=== PATIENT | female | born 1970 | race Caucasian/White ===

== ENCOUNTER 2020-07-21 10:35 | Inpatient (IN) ==
[2020-07-21] MEDS ORDERED: Magnesium Oxide 400 MG TABLET PO ONE (12:12)
[2020-07-21] MEDS ORDERED: *HR* LORazepam 2 MG/ML VIAL IM ONE ×3 (13:28→19:15)
[2020-07-21] MEDS ORDERED: Haloperidol Lactate 5 MG/ML VIAL IM ONE (13:28)
[2020-07-21] MEDS ORDERED: carvediloL 25 MG TABLET PO ONE (15:29)
[2020-07-21 20:15] LABS: Acetaminophen < 10 mcg/mL (10-20); Alanine Aminotransferase 18 Units/L (7-52); Albumin 4.3 g/dL (3.5-5.7); Albumin/Globulin Ratio 1.2 (1.1-2.2); Alkaline Phosphatase 71 Units/L (34-104); Aspartate Amino Transferase 19 Units/L (13-39); Bilirubin,Direct 0.1 mg/dL (0.0-0.2); Bilirubin,Indirect 0.6 mg/dL (0.0-1.0); Bilirubin,Total 0.7 mg/dL (0.3-1.0); Globulin 3.5 g/dL (2.4-3.5); Salicylate < 2.5 mg/dL (15.0-30.0); Total Protein 7.8 g/dL (6.4-8.9)
[2020-07-21] MEDS ORDERED: MOM Conc 10 ML UD.LIQ PO PRN (21:06)
[2020-07-21] MEDS ORDERED: Mag Hydrox/Al Hydrox/Simeth 30 ML UDC PO PRN (21:06)
[2020-07-21] MEDS ORDERED: haloperidoL 5 MG TABLET PO PRN (21:06)
[2020-07-21] MEDS ORDERED: *HR* LORazepam 2 MG/ML VIAL IM PRN (21:06)
[2020-07-21] MEDS ORDERED: *HR* LORazepam 1 MG TABLET PO PRN (21:06)
[2020-07-21] MEDS ORDERED: Ibuprofen 400 MG TABLET PO PRN (21:06)
[2020-07-21] MEDS ORDERED: Nicotine 2 MG GUM BC PRN (21:06)
[2020-07-21 21:41] LABS: Adenovirus Not Detected (Not Detect); Bordetella Pertussis Not Detected (Not Detect); Chlamydophila pneumoniae Not Detected (Not Detect); Coronavirus 229E Not Detected (Not Detect); Coronavirus HKU1 Not Detected (Not Detect); Coronavirus NL63 Not Detected (Not Detect); Coronavirus OC43 Not Detected (Not Detect); Human Metapneumovirus Not Detected (Not Detect); Human Rhinovirus/Enterovirus Not Detected (Not Detect); Influenza A Subtype 2009 H1 Not Detected (Not Detect); Influenza B Not Detected (Not Detect); Mycoplasma pneumoniae Not Detected (Not Detect); Parainfluenza Virus 1 Not Detected (Not Detect); Parainfluenza Virus 2 Not Detected (Not Detect); Parainfluenza Virus 3 Not Detected (Not Detect); Parainfluenza Virus 4 Not Detected (Not Detect); Respiratory Syncytial Virus Not Detected (Not Detect); SARS-CoV-2 Not Detected (Not Detect)
[2020-07-21] MEDS ORDERED: cloNIDine HCL 0.1 MG TABLET PO ONE (22:22)
[2020-07-21] MEDS: Acetaminophen 325 MG TABLET PO PRN (22:42)
[2020-07-21] MEDS: traZODone 50 MG TABLET PO PRN (22:43)
[2020-07-21] MEDS: hydrOXYzine pamoate 25 MG CAPSULE PO PRN (22:43)
[2020-07-22] MEDS: *HR* LORazepam 2 MG/ML VIAL IM PRN ×2 (03:46→21:22)
[2020-07-22] MEDS: Haloperidol Lactate 5 MG/ML VIAL IM PRN ×2 (03:46→21:21)
[2020-07-22] MEDS: Nicotine 14 MG PATCH.TD24 TD SCH (08:52)
[2020-07-22] MEDS ORDERED: *HR* LORazepam 1 MG TABLET PO ONE (11:53)
[2020-07-22] MEDS ORDERED: carvediloL 25 MG TABLET PO ONE (12:00)
[2020-07-22] MEDS: Acetaminophen 325 MG TABLET PO PRN (12:54)
[2020-07-22] MEDS: Aspirin Enteric Coated 81 MG Tablet PO SCH (12:54)
[2020-07-22] MEDS: Pregabalin 50 MG CAPSULE PO SCH ×2 (13:12→20:35)
[2020-07-22] MEDS: Vitamin B Complex/Vit C/Vit E 1 EACH TABLET PO SCH (13:15)
[2020-07-22] MEDS: *HR* LORazepam 1 MG TABLET PO SCH ×2 (14:39→20:35)
[2020-07-22] MEDS: carvediloL 25 MG TABLET PO SCH (18:11)
[2020-07-22] MEDS: Divalproex (24 HR) 500 MG TABLET PO SCH ×2 (20:37→21:51)
[2020-07-22] MEDS ORDERED: QUEtiapine Fumarate 100 MG TABLET PO SCH (21:00)
[2020-07-23] MEDS: hydrOXYzine pamoate 25 MG CAPSULE PO PRN (03:43)
[2020-07-23] MEDS: Aspirin Enteric Coated 81 MG Tablet PO SCH (08:38)
[2020-07-23] MEDS: Vitamin B Complex/Vit C/Vit E 1 EACH TABLET PO SCH ×2 (08:38→08:44)
[2020-07-23] MEDS: *HR* LORazepam 1 MG TABLET PO SCH ×3 (08:38→20:49)
[2020-07-23] MEDS: Pregabalin 50 MG CAPSULE PO SCH ×3 (08:38→20:49)
[2020-07-23] MEDS: carvediloL 25 MG TABLET PO SCH ×2 (08:39→18:09)
[2020-07-23] MEDS: Nicotine 14 MG PATCH.TD24 TD SCH (08:44)
[2020-07-23] MEDS: *HR* LORazepam 2 MG/ML VIAL IM PRN (13:51)
[2020-07-23] MEDS: Haloperidol Lactate 5 MG/ML VIAL IM PRN (13:51)
[2020-07-23] MEDS: estradioL 0.5 MG TABLET PO SCH (14:03)
[2020-07-23] MEDS: traZODone 50 MG TABLET PO SCH ×2 (20:48→20:49)
[2020-07-23] MEDS: Divalproex (24 HR) 500 MG TABLET PO SCH (20:49)
[2020-07-23] MEDS: QUEtiapine Fumarate 25 MG TABLET PO SCH (20:50)
[2020-07-23] MEDS ORDERED: *HR* OxyCODONE/APAP 7.5/325 TABLET PO ONE (21:38)
[2020-07-24] MEDS: estradioL 0.5 MG TABLET PO SCH (10:01)
[2020-07-24] MEDS: Pregabalin 50 MG CAPSULE PO SCH ×3 (10:01→20:19)
[2020-07-24] MEDS: Aspirin Enteric Coated 81 MG Tablet PO SCH (10:01)
[2020-07-24] MEDS: carvediloL 25 MG TABLET PO SCH ×2 (10:03→15:40)
[2020-07-24] MEDS: *HR* LORazepam 1 MG TABLET PO SCH ×3 (10:03→20:20)
[2020-07-24] MEDS: hydrOXYzine pamoate 25 MG CAPSULE PO PRN ×2 (10:11→22:20)
[2020-07-24] MEDS: Nicotine 14 MG PATCH.TD24 TD SCH (13:30)
[2020-07-24] MEDS: Vitamin B Complex/Vit C/Vit E 1 EACH TABLET PO SCH (13:31)
[2020-07-24] MEDS: Divalproex (24 HR) 500 MG TABLET PO SCH (20:19)
[2020-07-24] MEDS: traZODone 50 MG TABLET PO SCH ×2 (20:20)
[2020-07-24] MEDS: QUEtiapine Fumarate 25 MG TABLET PO SCH (20:20)
[2020-07-24] MEDS: traZODone 50 MG TABLET PO PRN (22:20)
[2020-07-25] MEDS: hydrOXYzine pamoate 25 MG CAPSULE PO PRN (04:53)
[2020-07-25] MEDS: Aspirin Enteric Coated 81 MG Tablet PO SCH (08:04)
[2020-07-25] MEDS: estradioL 0.5 MG TABLET PO SCH (08:04)
[2020-07-25] MEDS: Pregabalin 50 MG CAPSULE PO SCH (08:04)
[2020-07-25] MEDS: *HR* LORazepam 1 MG TABLET PO SCH (08:04)
[2020-07-25] MEDS: carvediloL 25 MG TABLET PO SCH (08:05)
[2020-07-25 10:02] VITALS: BP 144/96
[2020-07-25] MEDS: Nicotine 14 MG PATCH.TD24 TD SCH (12:57)
[2020-07-25] MEDS: Vitamin B Complex/Vit C/Vit E 1 EACH TABLET PO SCH (12:58)
== END 2020-07-25 12:05 | disposition home or self-care (01) | DRG 753 ==
LOC: EMEROOARM 10:35 → 1ANU 21:54
PROVIDERS: ADMIT Psychiatry & Neurology Forensic Psychiatry; ATTEND Psychiatry & Neurology Forensic Psychiatry